=== PATIENT | male | born 1960 | race Two or more races ===

== ENCOUNTER 2023-07-19 17:34 | Inpatient (IN) | payer OTHER ==
[~2023-07-19] VITALS: Ht 165.1 cm; Wt 63.5 kg
[2023-07-19 18:13] LABS: BASOPHILS % (AUTO) 0.4 % (0.0-2.0); EOSINOPHILS # (AUTO) 0.2 K/uL (0.0-0.7); EOSINOPHILS % (AUTO) 2.4 % (0.0-6.0); HEMATOCRIT 41 % (39-51); HEMOGLOBIN 13.5 g/dL (13.5-17.5); LYMPHOCYTES % (AUTO) 29.3 % (20.0-44.0); MEAN CORPUSCULAR HEMOGLOBIN 28 PG (26.0-33.0); MEAN CORPUSCULAR HGB CONC 33 g/dl (31.0-36.0); MEAN CORPUSCULAR VOLUME 83 fL (80-96); MONOCYTES # (AUTO) 0.4 K/uL (0.1-1.30); MONOCYTES % (AUTO) 5.6 % (2.0-12.0); NEUTROPHILS # (AUTO) 4.3 K/uL (1.8-8.9); NEUTROPHILS % (AUTO) 62.3 % (43.0-81.0); PLATELET COUNT (AUTO) 288 K/uL (150-450); RED BLOOD CELL COUNT(AUTO) 4.91 MIL/uL (4.5-6.0); RED CELL DISTRIBUTION WIDTH 15.4 % (11.5-15.0)
[2023-07-19 18:22] LABS: CARBON DIOXIDE 27 mmol/L (21-32); CHLORIDE 105 mmol/L (98-107); CREATININE 0.8 mg/dL (0.6-1.3); GLUCOSE 192 mg/dL (74-106); POTASSIUM 4.1 mmol/L (3.5-5.1); SODIUM SERUM 138 mmol/L (136-145); UREA NITROGEN, BLOOD 20 mg/dL (7-18)
[2023-07-19 18:38] LABS: ALANINE AMINOTRANSFERASE 22 U/L (12-78); ALBUMIN 3.5 g/dL (3.4-5.0); ALKALINE PHOSPHATASE 121 U/L (46-116); ASPARTATE AMINOTRANSFERASE 16 U/L (15-37); BILIRUBIN,DIRECT 0.1 mg/dL (0.0-0.2); BILIRUBIN,TOTAL 0.3 mg/dL (0.2-1.0); TOTAL PROTEIN, SERUM 7.9 g/dL (6.4-8.2)
[2023-07-19 20:13] VITALS: O2SAT 98
[2023-07-19 20:40] LABS: APPEARANCE,URINE Cloudy (CLEAR); BILIRUBIN,URINE Negative (NEGATIVE); BLOOD, URINE Moderate Ery/uL (NEGATIVE); COLOR,URINE YELLOW (YELLOW); KETONES,URINE Negative (NEGATIVE); LEUKOCYTE ESTERASE ,URINE Large (NEGATIVE); NITRITE, URINE Negative (NEGATIVE); PROTEIN,URINE 100 mg/dl (NEGATIVE); UGLUCOSE Negative (NEGATIVE)
[2023-07-19 20:51] LABS: ADD URINE CULTURE YES; BACTERIA,URINE 3+ /HPF (None Seen); SQUAMOUS EPITHELIAL CELL,UR Few /HPF (None Seen); WBC,URINE TOO NUMEROUS TO COUN /HPF (0-3)
[2023-07-19] MEDS ORDERED: CEPHALEXIN MONOHYDRATE 500 MG CAPSULE PO ONE (21:01)
[2023-07-19] MEDS: CEPHALEXIN MONOHYDRATE 500 MG CAPSULE PO ONE (21:03)
[2023-07-19] MEDS ORDERED: Z GUARD REMEDY 4 OZ OINT TP PRN (22:00)
[2023-07-19] MEDS ORDERED: MAGNESIUM HYDROXIDE 30 ML UDC PO PRN (22:00)
[2023-07-19] MEDS ORDERED: TEMAZEPAM 15 MG CAPSULE PO PRN (22:00)
[2023-07-19] MEDS ORDERED: MAG HYDROX/AL HYDROX/SIMETH 30 ML UDC PO PRN (22:00)
[2023-07-19] MEDS ORDERED: ACETAMINOPHEN 325 MG TABLET PO PRN (22:00)
[2023-07-19] MEDS ORDERED: ONDANSETRON HCL/PF 4 MG/2 ML VIAL IVP PRN (22:00)
[2023-07-19 22:50] VITALS: BP 147/92; TEMP 98.1; O2SAT 96
[2023-07-20] MEDS ORDERED: CEFTRIAXONE 1GM BAG (ER ONLY) 50 ML IV ONE (00:23)
[2023-07-20] MEDS: CEFTRIAXONE 1 G in IV D5W 50 ML IV SCH (00:29)
[2023-07-20 07:46] LABS: BASOPHILS % (AUTO) 0.4 % (0.0-2.0); EOSINOPHILS # (AUTO) 0.2 K/uL (0.0-0.7); EOSINOPHILS % (AUTO) 3.6 % (0.0-6.0); HEMATOCRIT 37 % (39-51); HEMOGLOBIN 12.4 g/dL (13.5-17.5); LYMPHOCYTES # (AUTO) 2.1 K/uL (0.8-4.8); LYMPHOCYTES % (AUTO) 35.4 % (20.0-44.0); MEAN CORPUSCULAR HEMOGLOBIN 28 PG (26.0-33.0); MEAN CORPUSCULAR HGB CONC 34 g/dl (31.0-36.0); MEAN CORPUSCULAR VOLUME 84 fL (80-96); MONOCYTES # (AUTO) 0.6 K/uL (0.1-1.30); MONOCYTES % (AUTO) 10.5 % (2.0-12.0); NEUTROPHILS % (AUTO) 50.1 % (43.0-81.0); PLATELET COUNT (AUTO) 272 K/uL (150-450); RED BLOOD CELL COUNT(AUTO) 4.41 MIL/uL (4.5-6.0); RED CELL DISTRIBUTION WIDTH 15.3 % (11.5-15.0)
[2023-07-20 08:00] VITALS: BP 151/90; TEMP 96.4; O2SAT 97
[2023-07-20] MEDS: PANTOPRAZOLE 40 MG TABLET.DR PO SCH (08:08)
[2023-07-20 08:16] LABS: CALCIUM, SERUM 8.2 mg/dL (8.5-10.1); CREATININE 0.5 mg/dL (0.6-1.3); MAGNESIUM 1.8 mg/dL (1.8-2.4); PHOSPHORUS 3.8 mg/dL (2.5-4.9); POTASSIUM 3.7 mmol/L (3.5-5.1)
[2023-07-20 08:34] LABS: THYROID STIMULATING HORMONE 1.719 uIU/mL (0.358-3.74)
[2023-07-20] MEDS ORDERED: CETI-90 PO (09:09)
[2023-07-20] MEDS ORDERED: FOLI0.4T6 PO (09:09)
[2023-07-20] MEDS ORDERED: FLUT16SP BNOSTRILS (09:09)
[2023-07-20] MEDS ORDERED: MAGN400O6 PO (09:09)
[2023-07-20] MEDS ORDERED: ACET325T53 PO (09:09)
[2023-07-20] MEDS ORDERED: ACET-637 PO (09:09)
[2023-07-20] MEDS ORDERED: ASPI-992 PO (09:09)
[2023-07-20] MEDS ORDERED: NA P133E RC (09:09)
[2023-07-20] MEDS ORDERED: MULT-213 PO (09:09)
[2023-07-20] MEDS ORDERED: ROSU20TA32 PO (09:09)
[2023-07-20] MEDS ORDERED: BISA10SU11 RC (09:09)
[2023-07-20] MEDS ORDERED: BACL5TAB PO (09:09)
[2023-07-20] MEDS ORDERED: BLOO-668 IN (09:09)
[2023-07-20] MEDS ORDERED: METF-440 PO (09:09)
[2023-07-20] MEDS ORDERED: ASCO500T21 PO (09:09)
[2023-07-20] MEDS ORDERED: FAMO20TA8 PO (09:09)
[2023-07-20] MEDS ORDERED: BICT1TAB PO (09:09)
[2023-07-20 16:00] VITALS: BP 125/84; TEMP 97.6; O2SAT 98
[2023-07-21 10:00] VITALS: BP 144/89; TEMP 98.4; O2SAT 97
[2023-07-21] MEDS: MULTIVITAMIN/LUTEIN/MINERALS 1 TAB PO SCH (10:00)
[2023-07-21] MEDS ORDERED: BISACODYL SUPP (10 MG) 10 MG/SUPP.RECT SUPP.RECT RC PRN (10:00)
[2023-07-21] MEDS: ASCORBIC ACID 500 MG TABLET PO SCH (10:00)
[2023-07-21] MEDS: BACLOFEN (10 MG) 10 MG TABLET PO SCH (10:00)
[2023-07-21] MEDS ORDERED: FAMOTIDINE (20 MG) 20 MG TABLET PO PRN (10:00)
[2023-07-21] MEDS: METFORMIN 500 MG TABLET PO SCH (10:00)
[2023-07-21] MEDS: FOLIC ACID 1 MG TABLET PO SCH (10:00)
[2023-07-21] MEDS: cetrizine 10 MG TABLET PO SCH (10:00)
[2023-07-21] MEDS: ASPIRIN 325 MG TABLET PO SCH (10:00)
[2023-07-21 11:16] LABS: BASOPHILS % (AUTO) 0.3 % (0.0-2.0); EOSINOPHILS # (AUTO) 0.2 K/uL (0.0-0.7); EOSINOPHILS % (AUTO) 3.4 % (0.0-6.0); HEMATOCRIT 39 % (39-51); HEMOGLOBIN 13.1 g/dL (13.5-17.5); LYMPHOCYTES # (AUTO) 1.8 K/uL (0.8-4.8); LYMPHOCYTES % (AUTO) 28.7 % (20.0-44.0); MEAN CORPUSCULAR HEMOGLOBIN 28 PG (26.0-33.0); MEAN CORPUSCULAR HGB CONC 33 g/dl (31.0-36.0); MEAN CORPUSCULAR VOLUME 84 fL (80-96); MONOCYTES # (AUTO) 0.6 K/uL (0.1-1.30); MONOCYTES % (AUTO) 9.9 % (2.0-12.0); NEUTROPHILS # (AUTO) 3.6 K/uL (1.8-8.9); NEUTROPHILS % (AUTO) 57.7 % (43.0-81.0); PLATELET COUNT (AUTO) 257 K/uL (150-450); RED BLOOD CELL COUNT(AUTO) 4.69 MIL/uL (4.5-6.0); RED CELL DISTRIBUTION WIDTH 15.5 % (11.5-15.0); WHITE BLOOD COUNT (AUTO) 6.2 K/uL (4.3-11.0)
[2023-07-21 16:14] VITALS: BP 127/84; TEMP 97.5; O2SAT 94
[2023-07-21 17:21] LABS: CALCIUM, SERUM 8.7 mg/dL (8.5-10.1); CREATININE 0.5 mg/dL (0.6-1.3); POTASSIUM 3.8 mmol/L (3.5-5.1)
[2023-07-21] MEDS: ATORVASTATIN 10 MG TABLET PO SCH (21:17)
[2023-07-22 08:00] VITALS: BP 134/92; TEMP 97.5; O2SAT 98
[2023-07-22 08:06] LABS: BASOPHILS % (AUTO) 0.3 % (0.0-2.0); EOSINOPHILS # (AUTO) 0.2 K/uL (0.0-0.7); EOSINOPHILS % (AUTO) 2.8 % (0.0-6.0); HEMATOCRIT 38 % (39-51); HEMOGLOBIN 12.8 g/dL (13.5-17.5); LYMPHOCYTES # (AUTO) 1.8 K/uL (0.8-4.8); LYMPHOCYTES % (AUTO) 29.3 % (20.0-44.0); MEAN CORPUSCULAR HEMOGLOBIN 28 PG (26.0-33.0); MEAN CORPUSCULAR HGB CONC 34 g/dl (31.0-36.0); MEAN CORPUSCULAR VOLUME 84 fL (80-96); MONOCYTES # (AUTO) 0.7 K/uL (0.1-1.30); NEUTROPHILS # (AUTO) 3.4 K/uL (1.8-8.9); NEUTROPHILS % (AUTO) 56.6 % (43.0-81.0); PLATELET COUNT (AUTO) 268 K/uL (150-450); RED BLOOD CELL COUNT(AUTO) 4.55 MIL/uL (4.5-6.0); RED CELL DISTRIBUTION WIDTH 15.3 % (11.5-15.0)
[2023-07-22 08:08] LABS: CALCIUM, SERUM 8.2 mg/dL (8.5-10.1); CREATININE 0.6 mg/dL (0.6-1.3); MAGNESIUM 1.8 mg/dL (1.8-2.4); PHOSPHORUS 3.9 mg/dL (2.5-4.9); POTASSIUM 3.7 mmol/L (3.5-5.1)
[2023-07-22 16:00] VITALS: BP 101/76; TEMP 98.1; O2SAT 98
[2023-07-22 20:00] VITALS: BP 106/76; TEMP 97.3; O2SAT 95
[2023-07-23 07:30] VITALS: BP 149/81; TEMP 97.5; O2SAT 97
[2023-07-23 16:00] VITALS: BP 126/78; TEMP 97; O2SAT 96
[2023-07-23 16:34] VITALS: BP 88/46; TEMP 96.3; O2SAT 97
== END 2023-07-23 19:00 | DRG 689 ==
LOC: ER 18:15 → MED 22:23
PROVIDERS: ADMIT Nurse Practitioner Acute Care; ATTEND Internal Medicine
DX: N39.0 Urinary tract infection, site not specified (principal); G93.41 Metabolic encephalopathy; E44.1 Mild protein-calorie malnutrition; I69.351 Hemiplegia and hemiparesis following cerebral infarction affecting right dominant side; N17.9 Acute kidney failure, unspecified; E86.0 Dehydration; R62.7 Adult failure to thrive; Z68.23 Body mass index [BMI] 23.0-23.9, adult; I10 Essential (primary) hypertension; Z95.1 Presence of aortocoronary bypass graft; R32 Unspecified urinary incontinence; R53.1 Weakness; I25.10 Atherosclerotic heart disease of native coronary artery without angina pectoris; E78.5 Hyperlipidemia, unspecified; B96.20 Unspecified Escherichia coli [E. coli] as the cause of diseases classified elsewhere; E11.9 Type 2 diabetes mellitus without complications; N12 Tubulo-interstitial nephritis, not specified as acute or chronic
CPT/HCPCS: 36415; 71045-TC; 80048-TC; 80076-TC; 81001; 83735-TC; 84100-TC; 84443-TC; 84484-TC; 85025-TC; 87081-TC; 87086-TC; 97110-TC; 97112-TC; 97116-TC; 97530-TC; 97535-TC; A4223; G0378; J0696; J7050; J7060